=== PATIENT | female | born 1950 | race Caucasian/White ===

== ENCOUNTER 2018-01-07 16:58 | Emergency (ER) | payer MEDICARE ==
[2018-01-07 20:15] VITALS: TEMP 99.1
[2018-01-07 22:04] VITALS: RESP 18; O2SAT 97
[2018-01-07 22:05] VITALS: BP 154/91; PULSE 79
== END 2018-01-07 21:55 | disposition home or self-care (01) | DRG 156 ==
LOC: ED 16:58
DX: R07.0 Pain in throat (principal)
CPT/HCPCS: 87430; 99282; 99283

== ENCOUNTER 2018-02-21 13:05 | Emergency (ER) | payer MEDICARE, OTHER ==
[2018-02-21 13:05] VITALS: O2SAT 97
[2018-02-21 13:18] VITALS: BP 157/91; PULSE 72; RESP 20; TEMP 97.5
== END 2018-02-21 13:50 | disposition home or self-care (01) | DRG 596 ==
LOC: ED 13:05
DX: B02.9 Zoster without complications (principal)
CPT/HCPCS: 99282

== ENCOUNTER 2018-03-28 12:19 | Emergency (ER) | payer OTHER ==
[2018-03-28 12:50] VITALS: BP 131/85; PULSE 88; RESP 18; TEMP 98.1; O2SAT 92
[2018-03-28] MEDS ORDERED: PREDNISONE 10 MG TAB PO SCH (13:45)
[2018-03-28] MEDS ORDERED: PREDNISONE 5 MG TAB ONE (13:49)
[2018-03-28] MEDS ORDERED: AZITHROMYCIN 250 MG TAB PO ONE (13:56)
[2018-03-28] MEDS ORDERED: AZITHROMYCIN 250 MG TAB ONE (14:00)
== END 2018-03-28 14:15 | disposition home or self-care (01) | DRG 195 ==
LOC: ED 12:19
DX: J18.1 Lobar pneumonia, unspecified organism (principal)
CPT/HCPCS: 71046; 99282; 99283; A9270-GY